=== PATIENT | female | born 1960 | race Caucasian/White ===

== ENCOUNTER → 2016-06-17 | Outpatient (CLI) | payer MEDICAID | LOC: FIMAGING 11:40 | PROVIDERS: ATTEND Physician Assistant Medical | DX: R22.1 Localized swelling, mass and lump, neck (principal) ==

== ENCOUNTER → 2016-06-24 | Outpatient (CLI) | payer MEDICAID | LOC: FIMAGING 11:08 | DX: Z12.31 Encounter for screening mammogram for malignant neoplasm of breast (principal) | CPT/HCPCS: G0202 ==

== ENCOUNTER → 2016-06-25 | Outpatient (CLI) | payer MEDICAID ==
[~2016-06-25] MED LIST: IOPAMIDOL (ISOVUE-300) 100 ML BTL IV ONE
== END ==
LOC: FIMAGING 07:56
PROVIDERS: ATTEND Physician Assistant Medical
DX: R22.1 Localized swelling, mass and lump, neck (principal)
CPT/HCPCS: Q9967

== ENCOUNTER → 2016-07-09 | Outpatient (CLI) | payer MEDICAID | LOC: FIMAGING 13:29 | PROVIDERS: ATTEND Obstetrics & Gynecology | DX: D25.1 Intramural leiomyoma of uterus (principal); D25.2 Subserosal leiomyoma of uterus; Z78.0 Asymptomatic menopausal state ==

== ENCOUNTER 2016-11-17 05:42 | Observation (INO) | payer MEDICAID ==
[2016-11-17] MEDS ORDERED: LIDOCAINE 1% 2 ML INJ ID PRN (06:47)
[2016-11-17] MEDS ORDERED: LIDO/EPI 1% **for epidural** 30 ML SDV ONE (06:47)
[2016-11-17] MEDS ORDERED: LR 1,000 ML IV ONE (06:47)
[2016-11-17] MEDS ORDERED: MIDAZOLAM 2 MG/2 ML VIAL IVP ONE (07:00)
--- NOTE | 2016-11-17 07:02 | PDANEPAE ---
ANE Past Medical History - Cardiovascular History Hx Hypertension: Yes Hx Arrhythmias: No Hx Chest Pain: No Hx Coronary Artery / Peripheral Vascular Disease: No Hx CHF / Valvular Disease: No Hx Palpitations: No - Pulmonary History Hx COPD: No Hx Asthma/Reactive Airway Disease: Yes Hx Recent Upper Respiratory Infection: No Hx Oxygen in Use at Home: No Hx Sleep Apnea: No Sleep Apnea Screening Result - Last Documented: Negative - Neurologic History Hx Cerebrovascular Accident: No Hx Seizures: No Hx Dementia: No - Endocrine History Hx Diabetes: No Hypothyroid: No Hyperthyroid: No Obesity: moderate - Renal History Hx Renal Disorders: No - Liver History Hx Hepatic Disorders: No - Neurological & Psychiatric Hx Hx Neurological and Psychiatric Disorders: No - Cancer History Hx Cancer: No - Congenital Disorder History Hx Congenital Disorders: No - GI History Hx Gastrointestinal Disorders: No - Other Health History Other 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 BREAST, AND ABD. - Chronic Pain History Chronic Pain: No - Surgical History Prior Surgeries: NONE ANE Review of Systems Review of Systems: - Exercise capacity METS (RN): 5 METS ANE Patient History - Allergies Allergies/Adverse Reactions: lisinopril Allergy (Verified 10/14/16 14:03) cough - Home Medications Home Medications: Albuterol [Proventil Inhaler HFA (*)] 1 puffs IH DAILY PRN 10/14/16 [Last Taken 11/17/16 00:53] Aspirin [Aspirin 81mg (*)] 81 mg PO DAILY PRN 10/14/16 [Last Taken 11/03/16] Atorvastatin Calcium [Lipitor 40 mg (*)] 40 mg PO HS 10/14/16 [Last Taken 20:45] Estradiol/Norethindrone Acet [Activella 1 mg-0.5 mg Tablet] 0.5 each PO DAILY [Last Taken 11/16/16 20:45] Fexofenadine HCl [Nu Allergy] 60 mg PO DAILY 10/14/16 [Last Taken 11/03/16] Hydrocortisone [Cortisone] 1 mando TP DAILY PRN 10/14/16 [Last Taken 10/15/16] Ibuprofen [Motrin (*)] 200 mg PO DAILY PRN 10/14/16 [Last Taken 11/03/16] Losartan Potassium 100 mg PO HS 10/14/16 [Last Taken 11/16/16 20:45] Montelukast Sodium [Singulair 10 mg (*)] 10 mg PO DAILY@1800 10/14/16 [Last Taken 11/16/16 20:45] Triamcinolone 0.1% [Triamcinolone 0.1% Cream (*)] 1 mando TP DAILY PRN 10/14/16 [ Last Taken 10/15/16] - NPO status NPO Since - Liquids (Date): 11/16/16 NPO Since - Liquids (Time): 20:30 NPO Since - Solids (Date): 11/16/16 NPO Since - Solids (Time): 19:00 - Smoking Hx Smoking Status: Never smoked - Family Anes Hx Family Hx Anesthesia Complications: NONE ANE Labs/Vital Signs - Vital Signs Blood Pressure: 147/99 Heart Rate: 71 Respiratory Rate: 16 O2 Sat (%): 92 Height: 160.02 cm Weight: 80.739 kg ANE Physical Exam - Airway Mallampati Score: Class 1 Mouth exam: normal dental/mouth exam - Pulmonary Pulmonary: no respiratory distress - Cardiovascular Cardiovascular: regular rate and rhythym - ASA Status ASA Status: II ANE Anesthesia Plan Anesthesia Plan: general endotracheal anesthesia
[2016-11-17] MEDS ORDERED: ceFAZolin 2 GM/DEXTROSE 100 ML IV ONE (07:03)
--- NOTE | 2016-11-17 07:03 | PDHPUP ---
History & Physical Update H&P update statement: This history and physical update is based on an assessment of the patient which was completed after admission or registration (within 24 hours), but prior to the surgery/procedure. H&P update: no change in patient's condition since H&P completed
[2016-11-17] MEDS ORDERED: DEXAMETHASONE 4 MG/ML VIAL ONE (07:16)
[2016-11-17] MEDS ORDERED: fentaNYL 100 MCG/2 ML INJ ONE ×3 (07:16→10:46)
[2016-11-17] MEDS ORDERED: ONDANSETRON 4 MG/2 ML VIAL ONE (07:16)
[2016-11-17] MEDS ORDERED: ROCURONIUM 50 MG/5 ML VIAL ONE (07:16)
[2016-11-17] MEDS ORDERED: LIDOCAINE 2% 5 ML SDV ONE (07:16)
[2016-11-17] MEDS ORDERED: PROPOFOL/EMULSION 500 MG/50 ML BOTTLE IV ONE (07:16)
[2016-11-17] MEDS ORDERED: REMIFENTANIL HCL 1 MG VIAL ONE (07:41)
[2016-11-17] MEDS ORDERED: epHEDrine SULFATE 10 MG/ML SYR ONE (08:07)
[2016-11-17] MEDS ORDERED: BACITRACIN ZINC 14.2 GM OINTTUBE TP ONE (08:56)
--- NOTE | 2016-11-17 09:10 | POSTOPPROG ---
Post Op Note Date of Operation: 11/17/16 Surgeon: Suzanne Kim Hydraulic Press Operator: Julieta Devlin MD Anesthesia: GET(General Endotracheal) Pre-op Diagnosis: R submax space lipoma Post-op Diagnosis: same Procedure: excision of deep neck space mass, NIMS Findings: large 5 cm submax space lipoma, intimately associated with gland Inf/Abcess present in the surg proc area at time of surgery?: No EBL: Minimal Complications: none apparent Drains: Mcalester (R neck crescencio placed)
[2016-11-17] MEDS ORDERED: fentaNYL 100 MCG/2 ML INJ IVP PRN (09:22)
[2016-11-17] MEDS ORDERED: PROMETHAZINE HCL 25 MG/ML INJ IVP PRN (09:22)
[2016-11-17] MEDS ORDERED: NALOXONE HCL 0.4 MG/ML INJ IVP PRN (09:22)
[2016-11-17] MEDS ORDERED: LR 500 ML IV PRN (09:22)
[2016-11-17] MEDS ORDERED: HYDROCODONE/APAP 5/325 TAB PO PRN (09:22)
[2016-11-17] MEDS ORDERED: LABETALOL HCL 5 MG/ML 20 ML MDV ONE (09:25)
--- NOTE | 2016-11-17 09:25 | POSTANESTH ---
Post Anesthetic Evaluation Cardiovascular Status: Normal, Stable, Tx Hyper/Hypo-tension Respiratory Status: Normal, Stable Level of Consciousness/Mental Status: Can Participate in Eval Pain Control: Adequate, Prn Tx Ordered Nausea/Vomiting Control: Adequate, Prn Tx Ordered Complications Possibly Related to Anesthesia: None Noted (Slight elevation in BP , treatment ordered. Will follow.)
[2016-11-17] MEDS: LABETALOL HCL 50 MG/10 ML SYR IVP PRN ×3 (09:29→10:58)
[2016-11-17] MEDS ORDERED: hydrALAZINE 20 MG/ML VIAL ONE ×2 (09:53→11:14)
[2016-11-17] MEDS: hydrALAZINE 20 MG/ML VIAL IVP PRN ×2 (10:06→10:18)
[2016-11-17] MEDS ORDERED: HYDROCODONE/APAP 5/325 TAB ONE (10:52)
--- NOTE | 2016-11-17 11:35 | POSTOPPROG ---
Post Op Note Date of Operation: 11/17/16 Surgeon: Suzanne Kim Anesthesiologist: abimael Anesthesia: GET(General Endotracheal) Pre-op Diagnosis: nasal obstruction Post-op Diagnosis: same Procedure: endoscopically assisted septoplasty, SMR turbs, B latera implants Findings: lg septal spur L. Lg turbs, ext and int valve collapse B Inf/Abcess present in the surg proc area at time of surgery?: No Depth: Superfical (Skin SQ) EBL: Minimal Complications: none apparent
[2016-11-17 12:00] VITALS: RESP 17
[2016-11-17 12:07] VITALS: BP 135/87; O2SAT 94
[2016-11-17 12:42] VITALS: PULSE 80; TEMP 97.7
--- NOTE | 2016-11-17 14:35 | ASDISCHSUM ---
Discharge Information Plan Status:Home with No Needs Medically Cleared to Leave:11/16/2016 Discharge Date:11/17/2016 12:35 PM CM D/C Disposition:Home, Routine, Self-Care ADT D/C Disposition:Home, Routine, Self-Care Projected Discharge Date:11/16/2016 12:00 AM Transportation at D/C: Discharge Delay Reason: Follow-Up Date:11/16/2016 12:00 AM Discharge Slot: Final Diagnosis:lipoma surgery Placement Information Patient Contact Information Contact Name:CHELO Relationship: Address:[address] [place] Alternate Phone: State/Zip Code:[place] [address] Email: Financial Information Financial Class:MD Primary Plan Desc:[employer] Primary Plan Number:[id number] Secondary Plan Desc: Secondary Plan Number: Assessment Information Intervention Information
--- NOTE | 2016-11-19 11:29 | GOP ---
[f rep st] OPERATIVE REPORT DATE OF OPERATION: 11/17/2016 SURGEON: Suzanne Kim MD NOZZLE OPERATOR: Julieta Devlin MD ANESTHESIA: General. PREOPERATIVE DIAGNOSIS: Right submandibular space lipoma. POSTOPERATIVE DIAGNOSIS: Right submandibular space lipoma. PROCEDURE PERFORMED: 1. Excision of deep neck space lipoma. 2. Facial nerve monitoring. FINDINGS: The patient was found to have a large 5 x 4 cm lipoma that was in the submandibular space. It was a directly associated with the lingual nerve, which was dissected off and kept intact, and t his was removed completely. ESTIMATED BLOOD LOSS: Minimal. INDICATIONS: The patient is a very pleasant woman who has a history of a right neck mass. A CT scan was done, and this showed a deep submandibular space lipoma, that pushed the submandibular gland inf eriorly and medially, and extended up medial to the mandible. The risks and benefits were discussed and she elected to proceed with excision. DESCRIPTION OF PROCEDURE: The patient was first seen in the preoperative area, where informed consen t was obtained. She was then brought back to the operating room, where Anesthesia sedated and intuba rossy her. A universal timeout was performed. The facial nerve monitor was set up and then confirmed to be working appropriately. At this point, a shoulder roll was placed, and she was prepped and drap ed in a sterile fashion. At this point, a 5 cm incision was made through the skin and then subcutane ous tissues about 2 fingerbreadths below the mandible and the skin crease on the right side of the ne ck just below the mass. Previously I had injected about 5 cc of 2% lidocaine with 1:100,000 epinephr ine into that area. The platysma was then elevated as well, and then subplatysmal flaps were elevate d inferiorly, as well as superiorly. As we were elevating this superiorly, this was done with cold d issection to watch out for the marginal mandibular nerve. This was seen and stimulated and confirmed to be stimulating and then kept in visualization and out of direct potential for injury. Once this was done, Challenge retractors were used to retract the skin, and then the fascia was dissected over the submandibular gland, and then once the submandibular gland was identified, I found the lipoma jus t deep to this, as well as posterior. The lipoma was dissected off the submandibular gland, keeping the submandibular gland intact. The lipoma was gently dissected from the surrounding tissues. The c arotid artery was directly deep to this, and this was obviously identified and kept intact and withou t injury. As we were dissecting superiorly, there was what appeared to be the lingual nerve in direc t opposition to the lipoma. So, lingual nerve was dissected free with blunt dissection until it was completely released, and then the rest of the lipoma was able to be gently and bluntly dissected from the superior submandibular space until the superior aspect was completely released. This, therefore , released the entire lipoma. This was removed from the incision. It was about 5 x 4 cm. This was sent off the field for permanent pathology. The wound was irrigated out copiously with normal saline , and then a Na was placed and sutured to the skin using a 2-0 silk. At this point, then, the p latysma and the subcutaneous tissues were closed using a 3-0 Vicryl in interrupted fashion. The skin was closed using a 5-0 nylon in a running fashion. Once this was done, the marginal mandibular bran ch of the nerve was able to still be stimulated with stimulator, and the wound was cleaned and then g auze was placed over the drain and then taped to the neck. At this point, the patient was turned christiane k over to Anesthesia, where she was awoken and extubated and taken to PACU in stable condition. Ther e were no complications and she tolerated the procedure well. COMPLICATIONS: None. /[id number]/MODL
== END 2016-11-17 12:35 | disposition home or self-care (01) ==
LOC: F3N 05:42
PROVIDERS: ADMIT Otolaryngology; ATTEND Otolaryngology
PROC: 0JB40ZZ Excision of Right Neck Subcutaneous Tissue and Fascia, Open Approach (ICD-10-PCS; principal; 2016-11-17 07:15)
DX: D17.0 Benign lipomatous neoplasm of skin and subcutaneous tissue of head, face and neck (principal); E78.5 Hyperlipidemia, unspecified; I10 Essential (primary) hypertension; J45.40 Moderate persistent asthma, uncomplicated
CPT/HCPCS: J0360; J0690; J1100; J2250; J2405; J2704; J3010; J3490

== ENCOUNTER → 2017-06-25 | Outpatient (CLI) | payer MEDICAID | LOC: FIMAGING 10:22 | PROVIDERS: ATTEND Obstetrics & Gynecology | DX: Z12.31 Encounter for screening mammogram for malignant neoplasm of breast (principal) ==

== ENCOUNTER → 2017-10-06 | Outpatient (CLI) | payer MEDICAID | LOC: FIMAGING 14:01 | PROVIDERS: ATTEND Obstetrics & Gynecology | DX: D25.9 Leiomyoma of uterus, unspecified (principal) ==

== ENCOUNTER → 2018-06-29 | Outpatient (CLI) | payer MEDICAID | LOC: FIMAGING 12:03 | PROVIDERS: ATTEND Obstetrics & Gynecology | DX: Z12.31 Encounter for screening mammogram for malignant neoplasm of breast (principal); Z79.890 Hormone replacement therapy ==